=== PATIENT | female | born 1985 | race Caucasian/White ===

== ENCOUNTER 2018-04-12 11:51 | Emergency (ER) | payer MEDICAID ==
[~2018-04-12] VITALS: Ht 165.1 cm; Wt 100.2 kg
[2018-04-12 12:30] VITALS: BP 137/82
[2018-04-12] MEDS ORDERED: HYDR-565 PO (13:23)
[2018-04-12] MEDS ORDERED: ONDA4TAB9 PO (13:23)
[2018-04-12] MEDS ORDERED: ibuprofen tablet 400 MG TABLET PO ONE (13:25)
== END 2018-04-12 14:34 | disposition home or self-care (01) ==
LOC: ER 11:52
DX: S62.336A Displaced fracture of neck of fifth metacarpal bone, right hand, initial encounter for closed fracture (principal); S60.031A Contusion of right middle finger without damage to nail, initial encounter; S60.041A Contusion of right ring finger without damage to nail, initial encounter; S60.051A Contusion of right little finger without damage to nail, initial encounter; Z88.0 Allergy status to penicillin; Z79.899 Other long term (current) drug therapy; W22.8XXA Striking against or struck by other objects, initial encounter; Y93.89 Activity, other specified; Y92.89 Other specified places as the place of occurrence of the external cause; Y99.8 Other external cause status
CPT/HCPCS: 29125; 73130; 99284; A6449

== ENCOUNTER 2019-01-16 09:10 | Emergency (ER) | payer MEDICAID ==
[~2019-01-16] VITALS: Ht 165.1 cm; Wt 103.0 kg
[2019-01-16] MEDS ORDERED: acetaminophen 325mg tablet PO ONE (10:30)
[2019-01-16] MEDS ORDERED: dexamethasone 4mg tablet PO ONE (10:30)
[2019-01-16] MEDS ORDERED: ipratropium/albuterol 3ml nebule NEB ONE (10:30)
[2019-01-16] MEDS ORDERED: AZIT250T2 PO (10:31)
[2019-01-16] MEDS ORDERED: ALBU18HF2 INH (10:31)
[2019-01-16] MEDS ORDERED: DOXY100C43 PO (10:31)
[2019-01-16] MEDS ORDERED: PRED20TA PO (10:31)
[2019-01-16 11:51] VITALS: BP 119/75
== END 2019-01-16 11:53 | disposition home or self-care (01) ==
LOC: ER 09:11
DX: J06.9 Acute upper respiratory infection, unspecified (principal); J32.9 Chronic sinusitis, unspecified; J45.909 Unspecified asthma, uncomplicated; F17.210 Nicotine dependence, cigarettes, uncomplicated; Z71.6 Tobacco abuse counseling; Z88.0 Allergy status to penicillin; Z79.899 Other long term (current) drug therapy
CPT/HCPCS: 94640; 94760; 99283; 99406; J8540

== ENCOUNTER 2019-01-19 13:44 | Emergency (ER) | payer MEDICAID ==
[~2019-01-19] VITALS: Ht 165.1 cm; Wt 104.1 kg
[~2019-01-19 13:44] MED LIST: ALBU18HF2 INH; AZIT250T2 PO; DOXY100C43 PO; PRED20TA PO
[2019-01-19 14:33] VITALS: BP 133/87
[2019-01-19] MEDS ORDERED: diphenhydrAMINE 25mg capsule PO ONE (15:30)
[2019-01-19] MEDS ORDERED: ipratropium/albuterol 3ml nebule NEB ONE (15:40)
[2019-01-19] MEDS ORDERED: AFRIN NS (23:17)
[2019-01-19] MEDS ORDERED: CODE10LI PO (23:17)
[2019-01-19] MEDS ORDERED: ONDA4TAB6 PO (23:17)
[2019-01-19] MEDS ORDERED: CETI1TAB PO (23:19)
[2019-01-20] MEDS ORDERED: PREN-125 PO (14:12)
[2019-01-20] MEDS ORDERED: ALBU18HF2 INH (14:29)
[2019-01-20] MEDS ORDERED: ONDA4TAB6 PO (15:02)
[2019-01-20] MEDS ORDERED: AZIT1PAC PO (15:02)
[2019-01-20] MEDS ORDERED: CODE10LI (15:05)
== END 2019-01-19 16:10 | disposition home or self-care (01) ==
LOC: ER 13:45
DX: R21 Rash and other nonspecific skin eruption (principal); T38.0X5A Adverse effect of glucocorticoids and synthetic analogues, initial encounter; T36.3X5A Adverse effect of macrolides, initial encounter; R41.0 Disorientation, unspecified; R53.1 Weakness; R06.02 Shortness of breath; J45.909 Unspecified asthma, uncomplicated; Z88.0 Allergy status to penicillin; Z79.899 Other long term (current) drug therapy; Y92.89 Other specified places as the place of occurrence of the external cause
CPT/HCPCS: 93005; 94640; 94760; 99283; Q0163

== ENCOUNTER 2019-01-19 21:27 | Emergency (ER) | payer MEDICAID ==
[~2019-01-19] VITALS: Ht 167.6 cm; Wt 96.8 kg
[2019-01-19] MEDS ORDERED: ondansetron 4mg rapidly disintigrating tab PO ONE (22:10)
[2019-01-19] MEDS ORDERED: guaiFENesin/codeine phos 10ml UD oral syrup PO ONE (22:10)
[2019-01-19] MEDS ORDERED: ONDA4TAB6 PO (23:17)
[2019-01-19] MEDS ORDERED: CODE10LI PO (23:17)
[2019-01-19] MEDS ORDERED: AFRIN NS (23:17)
[2019-01-19] MEDS ORDERED: CETI1TAB PO (23:19)
[2019-01-19 23:25] VITALS: BP 128/88
[2019-01-20] MEDS ORDERED: PREN-125 PO (14:12)
[2019-01-20] MEDS ORDERED: ALBU18HF2 INH (14:29)
[2019-01-20] MEDS ORDERED: AZIT1PAC PO (15:02)
[2019-01-20] MEDS ORDERED: ONDA4TAB6 PO (15:02)
[2019-01-20] MEDS ORDERED: CODE10LI (15:05)
== END 2019-01-19 23:26 | disposition home or self-care (01) ==
LOC: ER 21:28
DX: R05 Cough (principal); R50.9 Fever, unspecified; R11.0 Nausea; R04.0 Epistaxis; J45.909 Unspecified asthma, uncomplicated; Z88.0 Allergy status to penicillin; Z88.1 Allergy status to other antibiotic agents; Z79.899 Other long term (current) drug therapy
CPT/HCPCS: 99283

== ENCOUNTER 2019-01-20 13:47 | Inpatient (IN) | payer MEDICAID ==
[~2019-01-20] VITALS: Ht 165.1 cm; Wt 103.2 kg
[~2019-01-20 13:47] MED LIST changes: +AFRIN NS; +CETI1TAB PO; +CODE10LI PO; +ONDA4TAB6 PO
[2019-01-20] MEDS ORDERED: normal saline 1000ML IV soln IVB ONE (14:05)
[2019-01-20] MEDS ORDERED: PREN-125 PO (14:12)
--- NOTE | 2019-01-20 14:20 | NUR ---
Received report from Maricarmen ED RN. Patient arrived to PCU 3008 accompanied by EMS personnel. Patient oriented to room and to call light. Vital signs: T 100.1, HR 108, RR 24, 02 96% 4L nasal cannula. Patient in no acute distress. Will continue to monitor.
[2019-01-20] MEDS ORDERED: ALBU18HF2 INH (14:29)
[2019-01-20 14:33] LABS: BASOPHILS % (AUTO) 0.5 % (0-1); EOSINOPHILS % (AUTO) 0 % (0-6); HEMATOCRIT 47.4 % (35.0-45.0); HEMOGLOBIN 16.5 g/dl (12.0-16.0); LYMPHOCYTES # (AUTO) 0.5 X10'3 (1.1-4.8); LYMPHOCYTES % (AUTO) 5.8 % (21-51); MEAN CORPUSCULAR HEMOGLOBIN 30.6 PG (27.0-31.0); MEAN CORPUSCULAR HGB CONC 34.8 g/dL (33.0-36.5); MEAN CORPUSCULAR VOLUME 87.8 FL (78-98); MEAN PLATELET VOLUME 10.4 FL (7.4-10.4); MONOCYTES # (AUTO) 0.8 X10'3 (0-0.9); NEUTROPHILS # (AUTO) 7.8 X10'3 (1.8-7.7); NEUTROPHILS % (AUTO) 84.7 % (42-75); PLATELET COUNT 136 X10'3 (140-440); RED BLOOD COUNT 5.39 X10'6 (4.20-5.60); RED CELL DISTRIBUTION WIDTH 12.9 % (11.5-14.5); WHITE BLOOD COUNT 9.2 X10'3 (4.5-11.0)
[2019-01-20 14:37] LABS: ALANINE AMINOTRANSFERASE 80 U/L (12-78); ALBUMIN 3.5 G/DL (3.4-5.0); ALBUMIN/GLOBULIN RATIO 0.9 (1.1-1.5); ALKALINE PHOSPHATASE 83 IU/L (46-116); ANION GAP 9 (8-16); ASPARTATE AMINO TRANSFERASE 46 U/L (10-37); BILIRUBIN,TOTAL 0.6 MG/DL (0.1-1.0); BLOOD UREA NITROGEN 7 MG/DL (7-18); BUN/CREATININE RATIO 11.1 (6.6-38.0); CALCIUM 8.7 MG/DL (8.5-10.1); CHLORIDE 98 MMOL/L (99-107); CREATININE 0.63 MG/DL (0.40-0.90); GLUCOSE 91 MG/DL (70-104); MAGNESIUM 1.7 MG/DL (1.5-2.4); POTASSIUM 3.3 MMOL/L (3.5-5.1); SODIUM 133 MMOL/L (135-145); TOTAL CARBON DIOXIDE 26.1 MMOL/L (24-32); TOTAL PROTEIN 7.5 G/DL (6.4-8.2); eGFR > 90 ML/MIN
[2019-01-20] MEDS ORDERED: AZIT1PAC PO (15:02)
[2019-01-20] MEDS ORDERED: ONDA4TAB6 PO (15:02)
[2019-01-20] MEDS ORDERED: CODE10LI (15:05)
[2019-01-20] MEDS ORDERED: mag hydrox/Alum hydrox/simeth 30ml oral suspension PO PRN (16:45)
[2019-01-20] MEDS ORDERED: normal saline 1000ml 1,000 ML IV ONE (16:45)
[2019-01-20] MEDS ORDERED: ondansetron/PF 4mg/2ml inj IV PRN (16:45)
[2019-01-20] MEDS ORDERED: magnesium hydroxide 30ml (MOM) UD suspension PO PRN (16:45)
[2019-01-20] MEDS ORDERED: acetaminophen 325mg tablet PO PRN ×2 (16:45)
[2019-01-20] MEDS ORDERED: magnesium Cl slow-release 64mg tablet PO PRN (16:45)
[2019-01-20] MEDS ORDERED: potassium Cl 20 mEq SR tablet PO PRN (16:45)
[2019-01-20] MEDS ORDERED: magnesium 4gm in 100ml NS 100 ML IV PRN (16:45)
[2019-01-20] MEDS ORDERED: magnesium 2GM in 50ml NS 50 ML IV PRN (16:45)
[2019-01-20] MEDS ORDERED: potassium Cl 40MEQ/NS 500ml 500 ML IV PRN ×2 (16:45)
[2019-01-20] MEDS ORDERED: normal saline 1000ml 1,000 ML IV SCH (16:55)
[2019-01-20] MEDS ORDERED: ipratropium/albuterol 3ml nebule NEB PRN (17:00)
--- NOTE | 2019-01-20 18:31 | NUR ---
Problems reprioritized. Patient report given, questions answered & plan of care reviewed with Alin ALCALA.
[2019-01-20 19:00] VITALS: BP 132/81
[2019-01-20] MEDS: famotidine 20mg tablet PO SCH (19:06)
[2019-01-20 20:04] LABS: HIV ANTIBODY 1&2 RAPID NON-REACTIVE (Neg)
[2019-01-20] MEDS ORDERED: levoFLOXACIN-Levaquin 750MG/D5 150 ML IV SCH (21:20)
[2019-01-20] MEDS: nystatin 500,000 unit/5ML UD oral suspension PO SCH (21:24)
[2019-01-20] MEDS: levoFLOXACIN-Levaquin 750MG/D5 150 ML IV SCH (21:36)
[2019-01-20 23:00] VITALS: BP 153/89
[2019-01-20] MEDS: ibuprofen tablet 400 MG TABLET PO PRN (23:42)
[2019-01-21] VITALS (7 sets, daily range): BP systolic 111–142; BP diastolic 63–86
[2019-01-21 00:14] LABS: URINE HCG NEGATIVE (NEG)
[2019-01-21 00:34] LABS: CLARITY,URINE SLIGHTLY CLOUDY (Clear); COLOR,URINE YELLOW (Yellow); GLUCOSE, URINE NEGATIVE (Neg); KETONES,URINE NEGATIVE (Neg); LEUKOCYTE ESTERASE ,URINE SMALL (Neg); NITRITES, URINE NEGATIVE (Neg); OCCULT BLOOD,URINE LARGE (Neg); PROTEIN,URINE TRACE mg/dl (Neg); UROBILINOGEN,URINE 0.2 E.U/dL (0.2-1.0)
[2019-01-21 00:37] LABS: UA COLLECTION TYPE CLN CATCH MIDSTREAM
[2019-01-21 00:41] LABS: SQUAMOUS EPITHELIAL CELL,UR FEW /LPF (FEW); WBC,URINE TNTC /HPF (0-4)
[2019-01-21 00:42] LABS: BACTERIA,URINE 1+ /HPF (Neg); RBC,URINE 20-50 /HPF (0-2)
--- NOTE | 2019-01-21 06:22 | NUR ---
Problems reprioritized. Patient report given, questions answered & plan of care reviewed with Anny ALCALA.
--- NOTE | 2019-01-21 06:35 | NUR ---
Patient in room PCU 3008. I have received report from Alin ALCALA and had the opportunity to ask questions and assume patient care. Patient awake in bed. In no acute distress. Will continue to monitor.
--- NOTE | 2019-01-21 06:38 | NUR ---
Patient in room PCU 3008. I have received report from Alin ALCALA and had the opportunity to ask questions and assume patient care. Patient resting in bed, she is stable and has no current needs.
[2019-01-21 06:45] LABS: ALBUMIN 2.9 G/DL (3.4-5.0); ANION GAP 6 (8-16); BLOOD UREA NITROGEN 8 MG/DL (7-18); BUN/CREATININE RATIO 11.1 (6.6-38.0); CALCIUM 8.4 MG/DL (8.5-10.1); CHLORIDE 99 MMOL/L (99-107); CREATININE 0.72 MG/DL (0.40-0.90); GLUCOSE 89 MG/DL (70-104); MAGNESIUM 1.8 MG/DL (1.5-2.4); POTASSIUM 3.3 MMOL/L (3.5-5.1); SODIUM 136 MMOL/L (135-145); TOTAL CARBON DIOXIDE 30.8 MMOL/L (24-32); eGFR > 90 ML/MIN
[2019-01-21 06:46] LABS: BASOPHILS % (AUTO) 0.4 % (0-1); EOSINOPHILS % (AUTO) 0.1 % (0-6); HEMATOCRIT 45.2 % (35.0-45.0); HEMOGLOBIN 15.7 g/dl (12.0-16.0); LYMPHOCYTES # (AUTO) 0.9 X10'3 (1.1-4.8); LYMPHOCYTES % (AUTO) 11.6 % (21-51); MEAN CORPUSCULAR HEMOGLOBIN 30.7 PG (27.0-31.0); MEAN CORPUSCULAR HGB CONC 34.6 g/dL (33.0-36.5); MEAN CORPUSCULAR VOLUME 88.7 FL (78-98); MEAN PLATELET VOLUME 10.3 FL (7.4-10.4); MONOCYTES % (AUTO) 12.8 % (2-12); NEUTROPHILS # (AUTO) 6.1 X10'3 (1.8-7.7); NEUTROPHILS % (AUTO) 75.1 % (42-75); PLATELET COUNT 135 X10'3 (140-440); RED CELL DISTRIBUTION WIDTH 12.8 % (11.5-14.5); WHITE BLOOD COUNT 8.1 X10'3 (4.5-11.0)
[2019-01-21] MEDS: enoxaparin 40mg/0.4ml syringe SQ SCH (07:59)
[2019-01-21] MEDS: lactobacillus rhamnosus 10,000 MMU CELLS/CAPSULE PO SCH ×2 (08:00→20:19)
[2019-01-21] MEDS: K and/or MAG REPLACEMENT MC SCH (08:00)
[2019-01-21] MEDS: famotidine 20mg tablet PO SCH ×2 (08:01→20:19)
[2019-01-21] MEDS ORDERED: LIDOcaine 1% 30ml vial 5 ML in potassium Cl 40MEQ/NS 500ml 500 ML IV ONE (08:39)
[2019-01-21] MEDS: potassium Cl 20 mEq SR tablet PO PRN ×3 (08:41→17:10)
[2019-01-21] MEDS: nystatin 500,000 unit/5ML UD oral suspension PO SCH ×3 (08:41→20:19)
[2019-01-21] MEDS: ibuprofen tablet 400 MG TABLET PO PRN ×2 (14:38→20:19)
--- NOTE | 2019-01-21 18:18 | NUR ---
Problems reprioritized. Patient report given, questions answered & plan of care reviewed with Alin ALCALA and Grzegorz ALCALA.
--- NOTE | 2019-01-21 18:21 | NUR ---
Grey is Penelope ALCALA.
--- NOTE | 2019-01-21 18:21 | NUR ---
Problems reprioritized. Patient report given, questions answered & plan of care reviewed with Alin/Grzegorz ALCALA.
[2019-01-21] MEDS: levoFLOXACIN-Levaquin 750MG/D5 150 ML IV SCH (22:09)
--- NOTE | 2019-01-21 23:23 | NUR ---
PAGER ID: [phone] MESSAGE: Alin ALCALA ext [phone] Althea Butler [id number] Admit: r/o measles, Patient has severe sore throat, motrin and Tylenol for pain no relieving it. Can we get an oral lidocaine or GI cocktail
[2019-01-22] MEDS: benzocaine/menthol oral lozeng 1 EACH BOX MM PRN ×2 (01:25→08:18)
[2019-01-22 03:00] VITALS: BP 105/67
[2019-01-22 06:00] VITALS: BP 109/69
--- NOTE | 2019-01-22 06:26 | NUR ---
Patient in room PCU 3008. I have received report from Alin ALCALA and had the opportunity to ask questions and assume patient care.
--- NOTE | 2019-01-22 06:26 | NUR ---
Patient in room PCU 3008. I have received report from Alin ALCALA and Grzegorz ALCALA and had the opportunity to ask questions and assume patient care. Check on patient, she is up and requesting pain medication. Patient is stable, will continue to monitor.
[2019-01-22] MEDS: K and/or MAG REPLACEMENT MC SCH (08:00)
[2019-01-22 08:09] LABS: EOSINOPHILS % (AUTO) 0.6 % (0-6); HEMOGLOBIN 15.4 g/dl (12.0-16.0)
[2019-01-22 08:11] LABS: BASOPHILS % (AUTO) 0.5 % (0-1); HEMATOCRIT 44.8 % (35.0-45.0); LYMPHOCYTES # (AUTO) 1.4 X10'3 (1.1-4.8); LYMPHOCYTES % (AUTO) 19.4 % (21-51); MEAN CORPUSCULAR HEMOGLOBIN 30.5 PG (27.0-31.0); MEAN CORPUSCULAR HGB CONC 34.4 g/dL (33.0-36.5); MEAN CORPUSCULAR VOLUME 88.7 FL (78-98); MEAN PLATELET VOLUME 10.8 FL (7.4-10.4); MONOCYTES % (AUTO) 12.9 % (2-12); NEUTROPHILS % (AUTO) 66.6 % (42-75); PLATELET COUNT 179 X10'3 (140-440); RED BLOOD COUNT 5.05 X10'6 (4.20-5.60); RED CELL DISTRIBUTION WIDTH 12.7 % (11.5-14.5); WHITE BLOOD COUNT 7.5 X10'3 (4.5-11.0)
[2019-01-22 08:13] LABS: ALBUMIN 2.9 G/DL (3.4-5.0); ANION GAP 5 (8-16); BLOOD UREA NITROGEN 5 MG/DL (7-18); BUN/CREATININE RATIO 7.8 (6.6-38.0); CALCIUM 8.6 MG/DL (8.5-10.1); CHLORIDE 101 MMOL/L (99-107); CREATININE 0.64 MG/DL (0.40-0.90); GLUCOSE 105 MG/DL (70-104); MAGNESIUM 1.8 MG/DL (1.5-2.4); POTASSIUM 3.5 MMOL/L (3.5-5.1); SODIUM 135 MMOL/L (135-145); TOTAL CARBON DIOXIDE 29.1 MMOL/L (24-32); eGFR > 90 ML/MIN
[2019-01-22 08:17] LABS: RPR Non Reactive (Non Reactive)
[2019-01-22] MEDS: nystatin 500,000 unit/5ML UD oral suspension PO SCH ×3 (08:18→20:18)
[2019-01-22] MEDS: famotidine 20mg tablet PO SCH ×2 (08:19→20:18)
[2019-01-22] MEDS: lactobacillus rhamnosus 10,000 MMU CELLS/CAPSULE PO SCH ×2 (08:19→20:18)
[2019-01-22] MEDS: enoxaparin 40mg/0.4ml syringe SQ SCH (08:20)
[2019-01-22 09:27] LABS: LARGE PLATELETS FEW; PLATELET ESTIMATE NORMAL
[2019-01-22] MEDS: ibuprofen tablet 400 MG TABLET PO PRN (10:25)
[2019-01-22 11:00] VITALS: BP 103/68
[2019-01-22 15:00] VITALS: BP 133/76
--- NOTE | 2019-01-22 17:53 | NUR ---
[place] documentation: I have reviewed and agree with all interventions, assessments performed and documented by Penelope ALCALA. [place] Medication Administration: For this medication-pass time frame, all medication were reviewed, dispensed, administered and documented per hospital policy by Penelope ALCALA.
--- NOTE | 2019-01-22 18:22 | NUR ---
Problems reprioritized. Patient report given, questions answered & plan of care reviewed with Minna ALCALA.
--- NOTE | 2019-01-22 18:23 | NUR ---
Problems reprioritized. Patient report given, questions answered & plan of care reviewed with Minna ALCALA.
[2019-01-22 18:30] VITALS: BP 126/85
[2019-01-23] VITALS (7 sets, daily range): BP systolic 111–141; BP diastolic 74–88
[2019-01-23 05:18] LABS: BASOPHILS % (AUTO) 0.4 % (0-1); EOSINOPHILS # (AUTO) 0.1 X10'3 (0-0.9); EOSINOPHILS % (AUTO) 1.5 % (0-6); HEMATOCRIT 45.6 % (35.0-45.0); HEMOGLOBIN 15.6 g/dl (12.0-16.0); LYMPHOCYTES # (AUTO) 2.6 X10'3 (1.1-4.8); LYMPHOCYTES % (AUTO) 45.7 % (21-51); MEAN CORPUSCULAR HEMOGLOBIN 30.5 PG (27.0-31.0); MEAN CORPUSCULAR HGB CONC 34.2 g/dL (33.0-36.5); MEAN CORPUSCULAR VOLUME 89.1 FL (78-98); MEAN PLATELET VOLUME 9.9 FL (7.4-10.4); MONOCYTES # (AUTO) 0.7 X10'3 (0-0.9); MONOCYTES % (AUTO) 12.2 % (2-12); NEUTROPHILS # (AUTO) 2.3 X10'3 (1.8-7.7); NEUTROPHILS % (AUTO) 40.2 % (42-75); PLATELET COUNT 251 X10'3 (140-440); RED BLOOD COUNT 5.12 X10'6 (4.20-5.60); RED CELL DISTRIBUTION WIDTH 12.6 % (11.5-14.5); WHITE BLOOD COUNT 5.6 X10'3 (4.5-11.0)
[2019-01-23 05:26] LABS: ALBUMIN 3.1 G/DL (3.4-5.0); ANION GAP 7 (8-16); BLOOD UREA NITROGEN 5 MG/DL (7-18); BUN/CREATININE RATIO 6.9 (6.6-38.0); CHLORIDE 101 MMOL/L (99-107); CREATININE 0.72 MG/DL (0.40-0.90); GLUCOSE 102 MG/DL (70-104); MAGNESIUM 1.9 MG/DL (1.5-2.4); SODIUM 139 MMOL/L (135-145); TOTAL CARBON DIOXIDE 31.4 MMOL/L (24-32); eGFR > 90 ML/MIN
[2019-01-23] MEDS: nystatin 500,000 unit/5ML UD oral suspension PO SCH ×3 (08:06→21:00)
[2019-01-23] MEDS: K and/or MAG REPLACEMENT MC SCH (08:06)
[2019-01-23] MEDS: lactobacillus rhamnosus 10,000 MMU CELLS/CAPSULE PO SCH ×2 (08:06→22:00)
[2019-01-23] MEDS: famotidine 20mg tablet PO SCH ×2 (08:06→22:00)
[2019-01-23] MEDS: enoxaparin 40mg/0.4ml syringe SQ SCH (08:07)
[2019-01-23] MEDS ORDERED: potassium Cl oral solution 20 MEQ/15 ML PO PRN ×2 (12:42→12:43)
--- NOTE | 2019-01-23 18:46 | NUR ---
report given to the night FREDRICK KATHLEEN
[2019-01-23] MEDS: potassium Cl oral solution 20 MEQ/15 ML PO SCH (22:01)
[2019-01-24] MEDS: potassium Cl oral solution 20 MEQ/15 ML PO SCH
[2019-01-24 03:00] VITALS: BP 136/72
[2019-01-24 05:43] LABS: ANION GAP 5 (8-16); BASOPHILS % (AUTO) 0.5 % (0-1); BLOOD UREA NITROGEN 7 MG/DL (7-18); BUN/CREATININE RATIO 10.1 (6.6-38.0); CHLORIDE 104 MMOL/L (99-107); CREATININE 0.69 MG/DL (0.40-0.90); EOSINOPHILS # (AUTO) 0.1 X10'3 (0-0.9); EOSINOPHILS % (AUTO) 1.7 % (0-6); GLUCOSE 102 MG/DL (70-104); HEMATOCRIT 43.3 % (35.0-45.0); HEMOGLOBIN 14.6 g/dl (12.0-16.0); LYMPHOCYTES # (AUTO) 2.8 X10'3 (1.1-4.8); LYMPHOCYTES % (AUTO) 40.5 % (21-51); MAGNESIUM 1.7 MG/DL (1.5-2.4); MEAN CORPUSCULAR HEMOGLOBIN 30.1 PG (27.0-31.0); MEAN CORPUSCULAR HGB CONC 33.8 g/dL (33.0-36.5); MEAN CORPUSCULAR VOLUME 88.9 FL (78-98); MEAN PLATELET VOLUME 9.9 FL (7.4-10.4); MONOCYTES # (AUTO) 1.1 X10'3 (0-0.9); MONOCYTES % (AUTO) 15.6 % (2-12); NEUTROPHILS # (AUTO) 2.9 X10'3 (1.8-7.7); NEUTROPHILS % (AUTO) 41.7 % (42-75); PLATELET COUNT 309 X10'3 (140-440); POTASSIUM 4.4 MMOL/L (3.5-5.1); RED BLOOD COUNT 4.87 X10'6 (4.20-5.60); RED CELL DISTRIBUTION WIDTH 12.9 % (11.5-14.5); SODIUM 139 MMOL/L (135-145); TOTAL CARBON DIOXIDE 30.2 MMOL/L (24-32); eGFR > 90 ML/MIN
[2019-01-24 06:00] VITALS: BP 121/85
[2019-01-24 06:34] LABS: PLATELET ESTIMATE NORMAL; TOTAL CELLS COUNTED 100
[2019-01-24] MEDS: lactobacillus rhamnosus 10,000 MMU CELLS/CAPSULE PO SCH (07:52)
[2019-01-24] MEDS: nystatin 500,000 unit/5ML UD oral suspension PO SCH ×2 (07:52→12:49)
[2019-01-24] MEDS: enoxaparin 40mg/0.4ml syringe SQ SCH (07:52)
[2019-01-24] MEDS: famotidine 20mg tablet PO SCH (07:52)
[2019-01-24] MEDS: K and/or MAG REPLACEMENT MC SCH (07:53)
[2019-01-24 11:11] VITALS: BP 141/93
[2019-01-24] MEDS ORDERED: NYST1000 PO (12:34)
--- NOTE | 2019-01-24 15:00 | NUR ---
pt discharged, education provided on medication and treatment while in hospital, d/c packet provided and paperwork signed. Rx called into pt's pharmacy, [facility] on [address] in [place]. pt refused wheelchair and had boyfriend to walk with her out of hospital.
== END 2019-01-24 15:05 | disposition home or self-care (01) | DRG 139 ==
LOC: ER 13:47 → PCU 3S 16:58
PROVIDERS: ADMIT Hospitalist; ATTEND Internal Medicine
DX: J12.9 Viral pneumonia, unspecified (principal); D69.6 Thrombocytopenia, unspecified; B05.9 Measles without complication; F12.90 Cannabis use, unspecified, uncomplicated; F17.210 Nicotine dependence, cigarettes, uncomplicated; J45.909 Unspecified asthma, uncomplicated; J02.9 Acute pharyngitis, unspecified; M79.10 Myalgia, unspecified site; E87.6 Hypokalemia; R74.0 Nonspecific elevation of levels of transaminase and lactic acid dehydrogenase [LDH]; Z28.3 Underimmunization status; Z88.0 Allergy status to penicillin; Z88.1 Allergy status to other antibiotic agents; Z79.899 Other long term (current) drug therapy; Z72.89 Other problems related to lifestyle
CPT/HCPCS: 36415; 71045; 80048; 80053; 81001; 81003; 81025; 83605; 83735; 84145; 85025; 86592; 86703; 87040; 87070; 87081; 87088; 87210; 87491; 87880; 94640; 94760; 99285; G0378; J1650; J1956; J3480; J3490

== ENCOUNTER 2019-09-04 17:40 | Emergency (ER) | payer MEDICAID ==
[~2019-09-04] VITALS: Ht 165.1 cm; Wt 105.6 kg
[~2019-09-04 17:40] MED LIST changes: -AFRIN NS; -ALBU18HF2 INH; -AZIT250T2 PO; -CETI1TAB PO; -CODE10LI PO; -DOXY100C43 PO; +NYST1000 PO; -ONDA4TAB6 PO; -PRED20TA PO
[2019-09-04 18:23] LABS: BASOPHILS # (AUTO) 0.1 X10'3 (0-0.2); BASOPHILS % (AUTO) 0.7 % (0-1); EOSINOPHILS # (AUTO) 0.1 X10'3 (0-0.9); EOSINOPHILS % (AUTO) 0.5 % (0-6); HEMATOCRIT 43.1 % (35.0-45.0); HEMOGLOBIN 14.8 g/dl (12.0-16.0); LYMPHOCYTES # (AUTO) 2.9 X10'3 (1.1-4.8); MEAN CORPUSCULAR HGB CONC 34.3 g/dL (33.0-36.5); MEAN CORPUSCULAR VOLUME 90.5 FL (78-98); MEAN PLATELET VOLUME 10.1 FL (7.4-10.4); MONOCYTES # (AUTO) 0.9 X10'3 (0-0.9); MONOCYTES % (AUTO) 5.8 % (2-12); NEUTROPHILS # (AUTO) 10.8 X10'3 (1.8-7.7); PLATELET COUNT 278 X10'3 (140-440); RED BLOOD COUNT 4.76 X10'6 (4.20-5.60); RED CELL DISTRIBUTION WIDTH 12.8 % (11.5-14.5); WHITE BLOOD COUNT 14.8 X10'3 (4.5-11.0)
[2019-09-04 18:37] LABS: ANION GAP 8 (8-16); BILIRUBIN,TOTAL 0.4 MG/DL (0.1-1.0); BLOOD UREA NITROGEN 9 MG/DL (7-18); BUN/CREATININE RATIO 11.4 (6.6-38.0); CALCIUM 8.3 MG/DL (8.5-10.1); CHLORIDE 101 MMOL/L (99-107); CREATININE 0.79 MG/DL (0.40-0.90); GLUCOSE 88 MG/DL (70-104); POTASSIUM 3.6 MMOL/L (3.5-5.1); SODIUM 138 MMOL/L (135-145); TOTAL CARBON DIOXIDE 29.4 MMOL/L (24-32); TOTAL PROTEIN 7.4 G/DL (6.4-8.2); eGFR 84 ML/MIN
[2019-09-04 18:38] LABS: ALANINE AMINOTRANSFERASE 26 U/L (12-78); ALBUMIN 3.7 G/DL (3.4-5.0); ALKALINE PHOSPHATASE 66 IU/L (46-116); ASPARTATE AMINO TRANSFERASE 22 U/L (10-37)
[2019-09-04] MEDS ORDERED: ondansetron/PF 4mg/2ml inj IV ONE (19:15)
[2019-09-04] MEDS ORDERED: famotidine/PF 10 mg/ml inj IV ONE (19:15)
[2019-09-04] MEDS ORDERED: normal saline 1000ml 1,000 ML IV ONE (19:15)
[2019-09-04] MEDS ORDERED: ketorolac trometh. 30mg/ml inj. IV ONE (19:15)
[2019-09-04 20:53] VITALS: BP 142/84
== END 2019-09-04 20:48 | disposition home or self-care (01) ==
LOC: ER 17:41
DX: F10.929 Alcohol use, unspecified with intoxication, unspecified (principal); E86.0 Dehydration; J45.909 Unspecified asthma, uncomplicated; Z88.0 Allergy status to penicillin; Y90.9 Presence of alcohol in blood, level not specified
CPT/HCPCS: 36415; 80053; 85025; 96361; 96374; 96375; 99283; J1885; J2405; J3490; J7030

== ENCOUNTER 2021-10-22 15:06 | Emergency (ER) | payer MEDICAID ==
[~2021-10-22] VITALS: Ht 165.1 cm; Wt 104.5 kg
[2021-10-22] MEDS ORDERED: ondansetron 4mg rapidly disintigrating tab PO ONE (19:50)
[2021-10-22] MEDS ORDERED: HYDROcodone/acetaminophen 5mg/325mg tablet PO ONE (19:50)
[2021-10-22] MEDS ORDERED: ketorolac trometh. 30mg/ml inj. IM ONE (19:50)
[2021-10-22] MEDS ORDERED: clindamycin 150mg capsule PO ONE (19:50)
[2021-10-22] MEDS ORDERED: CLIN300C70 PO (20:04)
[2021-10-22] MEDS ORDERED: IBUP-1984 PO (20:04)
[2021-10-22 20:17] VITALS: BP 143/101
== END 2021-10-22 20:40 | disposition home or self-care (01) ==
LOC: ER 15:07
DX: L03.211 Cellulitis of face (principal); K04.7 Periapical abscess without sinus; Z88.0 Allergy status to penicillin
CPT/HCPCS: 96372; 99284; J1885

== ENCOUNTER → 2024-05-08 | Outpatient (CLI) | payer MEDICAID ==
[~2024-05-08] VITALS: Ht 165.1 cm; Wt 121.1 kg
[2024-05-08] MEDS: albuterol 2.5 MG/3 ML nebule NEB ONE (15:37)
[2024-05-08 15:38] VITALS: PULSE 105; RESP 16; O2SAT 97
[2024-05-08 15:50] VITALS: PULSE 88; RESP 16
== END | disposition home or self-care (01) ==
LOC: RT 15:10
PROVIDERS: ATTEND Physician Assistant
DX: R94.2 Abnormal results of pulmonary function studies (principal); R06.02 Shortness of breath
CPT/HCPCS: 94060; 94760